=== PATIENT | female | born 1985 | race Caucasian/White ===

== ENCOUNTER → 2019-08-07 | Outpatient (CLI) | payer OTHER, SELFPAY ==
--- NOTE | 2019-08-07 08:54 | BI_ITS ---
MAMMOGRAPHY - BILATERAL DIAGNOSTIC REASON FOR EXAM: Female, 33 years old. Right breast lump PERTINENT HISTORY: Non-contributory. TECHNIQUE: Digital examination. Mediolateral oblique (MLO) and craniocaudad (CC) views of both breasts were obtained, along with 3D tomosynthesis. CAD: CAD was performed on this study. COMPARISON: None. FINDINGS: Breast Composition: The breasts are heterogeneously dense, which may obscure small masses. There are no dominant masses or suspicious calcifications. No other significant abnormalities are identified. However, because the patient complains of a palpable lump in the right breast, further evaluation of this area with ultrasound is recommended. Left breast free of mammographic abnormality BI/DIAG MAMM W/CAD, BILAT IMPRESSION: Further ultrasonographic evaluation recommended, as described above. Recall Side: Right Breast ASSESSMENT CATEGORY: BIRADS Category 0: Incomplete. Need additional imaging evaluation. A letter regarding these results will be sent to the patient by the facility within 30 days. FOLLOW UP RECOMMENDATION: Ultrasound Recommended. (I) Approximately 10% of breast cancers are not detected by mammography. A normal mammogram should not delay biopsy of a clinically suspicious abnormality. Electronically Signed: Nic Montana MD at 10:28 EST , Service support ,
--- NOTE | 2019-08-07 08:54 | US_ITS ---
STUDY: ULTRASOUND BREAST - RIGHT REASON FOR EXAM: Female, 33 years old. Asymmetric density TECHNIQUE: Axial and longitudinal images of the RIGHT breast were performed with a high resolution ultrasound transducer. # OF IMAGES: 21 COMPARISON: Mammogram from earlier today FINDINGS: RIGHT Breast: Ultrasound evaluation of the right breast, in the area of concern, shows only normal dense fibroglandular tissue. There is no suspicious solid or cystic mass, architectural distortion or shadowing clustered calcifications US/Breast Limited Unilateral IMPRESSION: No suspicious sonographic findings ASSESSMENT CATEGORY: BIRADS Category 1: Negative. A letter regarding these results will be sent to the patient by the facility within 30 days. Electronically Signed: Nic Montana MD at 10:54 EST , Service support ,
== END | disposition home or self-care (01) ==
LOC: OPBI 08:48
PROVIDERS: PCP Family Medicine
DX: N64.59 Other signs and symptoms in breast (principal)
CPT/HCPCS: 76642; 77066

== ENCOUNTER 2020-09-13 00:52 | Emergency (ER) | payer OTHER, SELFPAY ==
[2020-09-13 01:03] VITALS: BP 158/84; PULSE 115; RESP 16; TEMP 36.2; O2SAT 99; BMI 45.3
--- NOTE | 2020-09-13 01:04 | CT_ITS ---
STUDY: CT ABDOMEN AND PELVIS WITHOUT CONTRAST REASON FOR EXAM: Female, 34 years old. Kidney Stone RADIATION DOSAGE (If Supplied By Facility): CTDIvol = ( 22.43 ) mGy, DLP = ( 1154.54 ) mGycm TECHNIQUE: Transaxial images were obtained from the dome of the diaphragm to the symphysis pubis without oral contrast, and without intravenous contrast. Sagittal and coronal images were reconstructed. Individualized dose optimization techniques were used for this CT. COMPARISON: None. FINDINGS: The visualized lung bases are unremarkable. The visualized portions of the heart are within normal limits. Normal liver. Normal gallbladder and extrahepatic biliary system. Normal spleen. Normal pancreas. Normal bilateral adrenal glands. Normal right kidney. Mild left hydronephrosis and left hydroureter. There is a tiny 3 mm stone in the distal left ureter near the left UVJ. Normal visualized stomach. Normal small intestine. Normal colon. The appendix is visualized and appears normal. Normal abdominal aorta. Normal inferior vena cava. Normal retroperitoneum. Normal urinary bladder. Unremarkable uterus with small bilateral ovarian cysts Normal abdominal wall. Normal osseous structures. CT/Abdomen/Pelvis without Cont IMPRESSION: Mild left hydronephrosis and left hydroureter with a tiny stone near the left UVJ Electronically Signed: Adi Montes DO at 2:13 EDT Tel , Service support ,
--- NOTE | 2020-09-13 01:05 | ED.DCSUM_ITS ---
History of Present Illness Chief Complaint: Flank Pain Informant: Patient Narrative: 34-year-old female presenting with left flank pain. Symptoms are present for about 1 hour. Describes it as a burning pain that radiates somewhat to her anterior lower abdominal region. She states she is had prior kidney stones and this feels very similar. Symptoms wax and wane. She notes nausea but no vomiting. No fevers. No urinary symptoms. She states that she has never required surgery for her kidney stones. Past Medical History - Allergies and Home Meds Allergies/Adverse Reactions: Allergies amoxicillin trihydrate [From Augmentin] Adverse Reaction (Verified 09/13/20 01:05) Nausea potassium clavulanate [From Augmentin] Adverse Reaction (Verified 09/13/20 01:05) Nausea Primary Care Physician: Yaw Wilson III, MD [Primary Care Provider] - Past Medical History: - - Ureterolithiasis Surgical History: noncontributory Smoking Status: Never smoker Drugs: None Review of Systems General: Denies: Chills, Fever, Sweats Eyes: Denies: Visual changes - bilaterally, Diplopia ENT: Denies: Rhinorrhea, Sore throat Cardiovascular: Denies: Chest pain, Palpitations Respiratory: Denies: Dyspnea, Cough, Dyspnea on exertion Gastrointestinal: Reports: Nausea. Denies: Abdominal pain, Vomiting, Diarrhea, Melena, Hematochezia Genitourinary: Reports: - - Left flank pain. Denies: Dysuria, Hematuria, Frequency Musculoskeletal: Denies: Back pain, Extremity Pain Skin: Denies: Rash, Wounds Neurological: Denies: Headache, Weakness, Numbness Physical Exam Vital Signs/Narrative: Vital Signs Temp Pulse Resp BP Pulse Ox 09/13/20 01:03 97.2 F L 115 H 16 158/84 H 99 Inital Vital Signs reviewed: Yes General: Well nourished, Well developed, Obese, No Acute Distress Head: Normocephalic, Atraumatic Eyes: Perrl, EOMI ENT: Moist mucous membranes, No rhinorrhea Neck: Supple, Nontender Cardiovascular: Regular rate, Regular rhythm, No murmurs Respiratory: No distress, CTA bilaterally, Chest nontender Abdomen: Soft, Nontender, Nondistended, Normal bowel sounds Back: Nontender, Normal Inspection Extremities: Nontender, No edema Skin: Normal color, No rash Neurological: Alert, Oriented x3, Cranial nerves II-XII grossly intact, Normal Strength, Normal Sensation Psychological: Normal affect, Normal Mood Diagnostic/Tx/Re-eval Clinical Impression(s) from Imaging Studies Abdomen/Pelvis CT 09/13/20 01:04 IMPRESSION: Mild left hydronephrosis and left hydroureter with a tiny stone near the left UVJ Electronically Signed: Adi Montes DO at 2:13 EDT Tel , Service support , Laboratory Last Values WBC 10.1 K/mm3 (4.4-11.0) 09/13/20 01:04 RBC 5.03 M/mm3 (4.2-5.4) 09/13/20 01:04 Hgb 14.0 g/dL (12.0-15.0) 09/13/20 01:04 Hct 46.4 % (37-47) 09/13/20 01:04 MCV 92.2 fL (81-99) 09/13/20 01:04 MCH 27.8 pg (27.0-32.0) 09/13/20 01:04 MCHC 30.2 g/dL (32-36) L 09/13/20 01:04 RDW Std Deviation 42.5 fl (35.1-43.9) 09/13/20 01:04 RDW Coeff of Adam 12.6 % (11.6-14.6) 09/13/20 01:04 Plt Count 290 K/mm3 (150-450) 09/13/20 01:04 MPV 9.5 fl (6.2-12.0) 09/13/20 01:04 Immature Gran % (Auto) 0.300 % (0.0-0.9) 09/13/20 01:04 Neut % (Auto) 46.0 % (47-70) L 09/13/20 01:04 Lymph % (Auto) 43.0 % (19-41) H 09/13/20 01:04 [place] % (Auto) 8.5 % (0-10) 09/13/20 01:04 Eos % (Auto) 1.5 % (0-5) 09/13/20 01:04 Baso % (Auto) 0.7 % (0-1) 09/13/20 01:04 Absolute Neuts (auto) 4.7 X10^3/uL (2.0-7.7) 09/13/20 01:04 Absolute Lymphs (auto) 4.36 X10^3/uL (0.83-4.51) 09/13/20 01:04 Nucleated RBC % 0 % (0-5) 09/13/20 01:04 Sodium 138 mmol/L (136-145) 09/13/20 01:04 Potassium 3.8 mmol/L (3.5-5.1) 09/13/20 01:04 Chloride 110 mmol/L (98-107) H 09/13/20 01:04 Carbon Dioxide 24.0 mmol/L (21.0-32.0) 09/13/20 01:04 Anion Gap 4 (5-15) L 09/13/20 01:04 BUN 14 mg/dL (7-18) 09/13/20 01:04 Creatinine 0.84 mg/dL (0.55-1.02) 09/13/20 01:04 Estim Creat Clear Calc 83.03 ml/min 09/13/20 01:04 Est GFR (MDRD) Af Amer 100 mL/min (>60) 09/13/20 01:04 Est GFR (MDRD) Non-Af 83 mL/min (>60) 09/13/20 01:04 BUN/Creatinine Ratio 16.6 RATIO (10-20) 09/13/20 01:04 Glucose 112 mg/dL (74-106) H 09/13/20 01:04 Calcium 8.2 mg/dL (8.5-10.1) L 09/13/20 01:04 Urine Color Yellow (Yellow) 09/13/20 01:15 Urine Clarity Clear (Clear) 09/13/20 01:15 Urine pH 6.0 (5.0 - 8.0) 09/13/20 01:15 Ur Specific [place] 1.025 (1.002-1.030) 09/13/20 01:15 Urine Protein 15 mg/dl (Negative) H 09/13/20 01:15 Urine Glucose (UA) Normal mg/dl (Normal) 09/13/20 01:15 Urine Ketones Negative mg/dl (Negative) 09/13/20 01:15 Urine Occult Blood 25 /ul (Negative) H 09/13/20 01:15 Urine Nitrite Negative (Negative) 09/13/20 01:15 Urine Bilirubin Negative mg/dL (Negative) 09/13/20 01:15 Urine Urobilinogen Normal mg/dl (Normal) 09/13/20 01:15 Ur Leukocyte Esterase Negative /ul (Negative) 09/13/20 01:15 Urine RBC 0-5 SEEN /hpf (0-5) 09/13/20 01:15 Urine WBC 0 SEEN /hpf (0-5) 09/13/20 01:15 Ur Squamous Epith Cells 0-5 SEEN /hpf (5-10) 09/13/20 01:15 Urine Bacteria 0 SEEN /hpf (None Seen) 09/13/20 01:15 Urine Mucus 0 SEEN /hpf (<or=2+) 09/13/20 01:15 Urine Test Negative Negative 09/13/20 01:15 - Medical Decision Making Patient received Toradol and Zofran. Urine does not show any obvious infection or hematuria. Creatinine normal. CT demonstrates a distal 3 mm ureteral calculus on the left. Patient is feeling much better. She will be discharged home with prescriptions for Percocet and Zofran. Patient will be referred to urology. Patient to return if worsening or concerns. ED Disposition - Plan for ED Patient: Disposition: Home or Assisted Living Diagnosis: Left ureteral calculus, Acute left flank pain Instructions: ED Kidney Stone w/ Colic Prescriptions: Oxycodone HCl/Acetaminophen [Percocet 5/325] 1 tab PO Q6H PRN PRN 3 Days #12 tab PRN Reason: Pain Prescription Printed Ondansetron [Zofran Odt] 4 mg PO Q8H PRN PRN #10 tab PRN Reason: Nausea Prescription Printed Referrals: Amairani Rivera MD [STAFF PHYSICIAN] - (call for urologic evaluation)
[2020-09-13 01:14] LABS: Absolute Lymphocyte Count 4.36 X10^3/uL (0.83-4.51); Absolute Neutrophil Count 4.7 X10^3/uL (2.0-7.7); Basophil# 0.07 X10^3/uL; Basophil% 0.7 % (0-1); Eosinophil# 0.15 X10^3/uL; Eosinophils% 1.5 % (0-5); Hematocrit 46.4 % (37-47); Lymphocyte # 4.36 X10^3/ul (4.0); Mean Corp Hgb Conc 30.2 g/dL (32-36); Mean Corpuscular Hgb 27.8 pg (27.0-32.0); Mean Corpuscular Volume 92.2 fL (81-99); Mean Platelet Vol. 9.5 fl (6.2-12.0); Monocyte# 0.86 X10^3/uL; Monocyte% 8.5 % (0-10); NRBC Flagged by Analyzer 0 % (0-5); Neutrophil # 4.66 X10^3/uL (2.7-7.7); Platelet Count 290 K/mm3 (150-450); RBC Distribution Width CV 12.6 % (11.6-14.6); RBC Distribution Width SD 42.5 fl (35.1-43.9); Red Blood Count 5.03 M/mm3 (4.2-5.4); White Blood Count 10.1 K/mm3 (4.4-11.0)
[2020-09-13] MEDS: Ondansetron 4 MG/2 ML Vial IV (01:19)
[2020-09-13 01:20] LABS: Bacteria 0 SEEN /hpf (None Seen); Color, Urine Yellow (Yellow); Glucose, Dipstick Normal (Normal); Ketone-Dipstick Negative (Negative); Leukocyte Esterase-Dipstick Negative /ul (Negative); Mucous, Urine 0 SEEN /hpf (<or=2+); Nitrite-Dipstick Negative (Negative); Occult Blood-Urine 25 /ul (Negative); Protein-Dipstick 15 mg/dl (Negative); Specific Gravity, Urine 1.025 (1.002-1.030); Urine Bilirubin Dipstick Negative (Negative); Urine Clarity Clear (Clear); Urine Urobilinogen Normal (Normal); White Blood Cells 0 SEEN /hpf (0-5)
[2020-09-13] MEDS: Ketorolac 30 MG/ML Syringe IV (01:20)
[2020-09-13 01:25] LABS: Internal QC Validated? YES +Cl - CLEAR BKGD; Pregnancy, Urine Negative Negative; Red Blood Cells-Urine 0-5 SEEN /hpf (0-5); Squamous Epithelial Cells - UA 0-5 SEEN /hpf (5-10)
[2020-09-13 01:26] LABS: Anion Gap 4 (5-15); BUN 14 mg/dL (7-18); BUN/Creat Ratio 16.6 RATIO (10-20); Calcium,Total 8.2 mg/dL (8.5-10.1); Chloride 110 mmol/L (98-107); Creatinine, Serum 0.84 mg/dL (0.55-1.02); EST Glomerular Filtration Rate 83 mL/min (>60); Est Glom Filt Rate - Afr Amer 100 mL/min (>60); Estimated Creatinine Clearance 83.03 ml/min; Glucose 112 mg/dL (74-106); Potassium 3.8 mmol/L (3.5-5.1); Sodium Level 138 mmol/L (136-145)
[2020-09-13 02:34] VITALS: BP 151/92; PULSE 102; RESP 16; O2SAT 100
== END 2020-09-13 02:35 | disposition home or self-care (01) ==
PROVIDERS: Emergency Provider Emergency Medicine; PCP Family Medicine
DX: N13.2 Hydronephrosis with renal and ureteral calculous obstruction (principal); E66.9 Obesity, unspecified; Z87.442 Personal history of urinary calculi
CPT/HCPCS: 74176; 80048; 81001; 81025; 85025; 96374; 96375; 99284; A4216; J2405